=== PATIENT | female | born 1955 | race Caucasian/White ===

== ENCOUNTER → 2017-03-31 | Outpatient (CLI) | payer OTHER | LOC: FIMAGING 09:24 | PROVIDERS: ATTEND Emergency Medicine | DX: Z12.31 Encounter for screening mammogram for malignant neoplasm of breast (principal); Z13.820 Encounter for screening for osteoporosis; M85.80 Other specified disorders of bone density and structure, unspecified site; Z78.0 Asymptomatic menopausal state; Z87.81 Personal history of (healed) traumatic fracture | CPT/HCPCS: G0202 ==

== ENCOUNTER → 2018-09-27 | Outpatient (CLI) | payer OTHER | LOC: FIMAGING 12:34 | PROVIDERS: ATTEND Family Medicine | DX: Z12.31 Encounter for screening mammogram for malignant neoplasm of breast (principal) ==

== ENCOUNTER → 2018-11-27 | Outpatient (CLI) | payer OTHER | LOC: FIMAGING 13:42 | PROVIDERS: ATTEND Family Medicine | DX: R91.1 Solitary pulmonary nodule (principal) ==

== ENCOUNTER → 2019-02-14 | Outpatient (CLI) | payer OTHER | LOC: FIMAGING 16:37 | PROVIDERS: ATTEND Orthopaedic Surgery Hand Surgery | DX: S82.251A Displaced comminuted fracture of shaft of right tibia, initial encounter for closed fracture (principal) ==

== ENCOUNTER → 2019-02-14 | Outpatient (CLI) | payer OTHER | LOC: BMCIMAGING 14:08 | PROVIDERS: ATTEND Nurse Practitioner Family | DX: S82.251A Displaced comminuted fracture of shaft of right tibia, initial encounter for closed fracture (principal) ==

== ENCOUNTER 2019-02-21 12:59 | Observation (INO) | payer OTHER ==
--- NOTE | 2019-02-21 13:23 | PDHPUP ---
History & Physical Update H&P update statement: This history and physical update is based on an assessment of the patient which was completed after admission or registration (within 24 hours), but prior to the surgery/procedure. H&P update: H&P reviewed & patient examined, no change in patient's condition since H&P completed
[2019-02-21] MEDS ORDERED: LR 1,000 ML IV ONE (13:33)
--- NOTE | 2019-02-21 13:37 | PDANEPAE ---
ANE History of Present Illness right tibial plateau fracture, here for ORIF ANE Past Medical History - Cardiovascular History Hx Hypertension: No Hx Arrhythmias: No Hx Chest Pain: No Hx Coronary Artery / Peripheral Vascular Disease: No Hx CHF / Valvular Disease: No Hx Palpitations: No - Pulmonary History Hx COPD: No Hx Asthma/Reactive Airway Disease: No Hx Recent Upper Respiratory Infection: No Hx Oxygen in Use at Home: No Hx Sleep Apnea: No Sleep Apnea Screening Result - Last Documented: Negative Pulmonary History Comment: PULMONARY NODULE - Neurologic History Hx Cerebrovascular Accident: No Hx Seizures: No Hx Dementia: No - Endocrine History Hx Diabetes: No - Renal History Hx Renal Disorders: No - Liver History Hx Hepatic Disorders: No - Neurological & Psychiatric Hx Hx Neurological and Psychiatric Disorders: No - Cancer History Hx Cancer: Yes Cancer History Comment: FACIAL SKIN - Congenital Disorder History Hx Congenital Disorders: No - GI History Hx Gastrointestinal Disorders: Yes Gastrointestinal History Comment: INTERMITTENT WILL USE TUMS - Other Health History Other Health History: INJURED RT KNEE SKING 02/14/19. PSORIASIS ARMS/FEET - Chronic Pain History Chronic Pain: No - Surgical History Prior Surgeries: TONSILLECTOMY. LT BREAST BX. MOH'S FACIAL SURG ANE Review of Systems Review of Systems: - Exercise capacity METS (RN): 6 METS ANE Patient History - Allergies Allergies/Adverse Reactions: Sulfa (Sulfonamide Antibiotics) Allergy (Verified 02/18/19 11:23) Hives - Home Medications Home Medications: NK [No Known Home Meds] 02/18/19 [Last Taken Unknown] - Smoking Hx Smoking Status: Never smoked - Family Anes Hx Family Hx Anesthesia Complications: DTR SLOW TO WAKE UP ANE Labs/Vital Signs - Vital Signs Height: 160.02 cm Weight: 80.739 kg ANE Physical Exam - Airway Neck exam: FROM Mallampati Score: Class 2 Mouth exam: normal dental/mouth exam - Pulmonary Pulmonary: no respiratory distress, no rales or rhonchi - Cardiovascular Cardiovascular: regular rate and rhythym, no murmur, rub, or gallop - ASA Status ASA Status: II ANE Anesthesia Plan Anesthesia Plan: general endotracheal anesthesia, GA w LMA Total IV Anesthesia: No
[2019-02-21] MEDS ORDERED: ceFAZolin 2 GM/DEXTROSE 100 ML IV ONE ×2 (13:49→17:44)
[2019-02-21] MEDS ORDERED: fentaNYL 100 MCG/2 ML INJ ONE ×4 (14:02→17:47)
[2019-02-21] MEDS ORDERED: LIDOCAINE 2% 100 MG/5 ML SYR ONE (14:02)
[2019-02-21] MEDS ORDERED: PROPOFOL 200 MG/20 ML VIAL ONE ×2 (14:02→16:01)
[2019-02-21] MEDS ORDERED: ONDANSETRON 4 MG/2 ML VIAL ONE (14:02)
[2019-02-21] MEDS ORDERED: DEXAMETHASONE 4 MG/ML VIAL ONE (14:02)
[2019-02-21] MEDS ORDERED: BUPIVACAINE/EPI 0.5% 30 ML SDV ONE (14:08)
[2019-02-21] MEDS ORDERED: LABETALOL HCL 5 MG/ML 20 ML MDV IVP PRN (16:23)
[2019-02-21] MEDS ORDERED: ACETAMINOPHEN 500 MG TAB PO PRN (16:23)
[2019-02-21] MEDS ORDERED: ONDANSETRON 4 MG/2 ML VIAL IVP PRN ×2 (16:23→17:44)
[2019-02-21] MEDS ORDERED: PROMETHAZINE HCL 25 MG/ML INJ IVP PRN ×2 (16:23→17:44)
[2019-02-21] MEDS ORDERED: DIAZEPAM 5 MG/ML 1 ML SYR IVP PRN (16:23)
[2019-02-21] MEDS ORDERED: NALOXONE HCL 0.4 MG/ML INJ IVP PRN (16:23)
[2019-02-21] MEDS ORDERED: LR 500 ML IV PRN (16:23)
[2019-02-21] MEDS ORDERED: HYDROmorphONE/DILAUDID 1 MG/ML INJ IVP PRN (16:23)
[2019-02-21] MEDS ORDERED: MEPERIDINE 25 MG/0.5 ML AMP IVP PRN (16:23)
--- NOTE | 2019-02-21 17:40 | POSTANESTH ---
Post Anesthetic Evaluation Cardiovascular Status: Normal, Stable Respiratory Status: Normal, Stable Level of Consciousness/Mental Status: Can Participate in Eval Pain Control: Adequate, Prn Tx Ordered Nausea/Vomiting Control: Adequate, Prn Tx Ordered Complications Possibly Related to Anesthesia: None Noted
[2019-02-21] MEDS ORDERED: PROMETHAZINE HCL 25 MG SUPPR PR PRN (17:44)
[2019-02-21] MEDS ORDERED: KETOROLAC 15 MG/1 ML SDV IVP ONE (17:44)
[2019-02-21] MEDS ORDERED: DIPHENOXYLATE/ATROPINE LOMOTIL 1 TAB PO PRN (17:44)
[2019-02-21] MEDS ORDERED: diphenhydrAMINE 25 MG CAP PO PRN (17:44)
[2019-02-21] MEDS ORDERED: ONDANSETRON DISINTEGRATING 4 MG TAB PO PRN (17:44)
[2019-02-21] MEDS ORDERED: METOCLOPRAMIDE 10 MG/2 ML VIAL IVP PRN (17:44)
[2019-02-21] MEDS: fentaNYL 100 MCG/2 ML INJ IVP PRN ×2 (17:51→17:57)
[2019-02-21] MEDS ORDERED: LR 1,000 ML IV SCH (18:00)
[2019-02-21] MEDS ORDERED: KETOROLAC 15 MG/1 ML SDV ONE (18:53)
[2019-02-21] MEDS ORDERED: ACETAMINOPHEN 325 MG TAB ONE (19:04)
[2019-02-21] MEDS: ACETAMINOPHEN 325 MG TAB PO SCH ×2 (19:09→23:06)
[2019-02-21] MEDS ORDERED: oxyCODONE IR 5 MG TAB ONE ×2 (19:12→19:40)
[2019-02-21] MEDS: oxyCODONE IR 5 MG TAB PO PRN ×3 (19:14→21:03)
[2019-02-21] MEDS: FAMOTIDINE 20 MG TAB PO SCH (22:37)
[2019-02-21] MEDS: ceFAZolin 2 GM/DEXTROSE 100 ML IV SCH (22:38)
[2019-02-21] MEDS: KETOROLAC 15 MG/1 ML SDV IVP SCH (23:06)
[2019-02-22] MEDS: oxyCODONE IR 5 MG TAB PO PRN ×2 (00:14→08:46)
--- NOTE | 2019-02-22 03:27 | GOP ---
[f rep st] OPERATIVE REPORT DATE OF OPERATION: 02/21/2019 SURGEON: Aneesh Kelley MD ANESTHESIA: General. PREOPERATIVE DIAGNOSIS: Right lateral split and depressed tibial plateau fracture, Schatzker II. POSTOPERATIVE DIAGNOSIS: Right lateral split and depressed tibial plateau fracture, Schatzker II. PROCEDURE PERFORMED: Open reduction, internal fixation of right tibial plateau fracture. FINDINGS: ESTIMATED BLOOD LOSS: 20 cc. INDICATIONS: The patient is a 63-year-old female who sustained this injury 1 week ago while skiing a [employer]. She had immediate pain and right after her fall skiing, she was seen in Urgent Care. X-ra ys were taken, which showed a lateral plateau fracture, with articular depression. I saw the patient that day, while she was in Urgent Care. I ordered a CT scan and then the patient saw me in clinic a fter this CT scan, where we reviewed it. She had fairly significant articular depression with a spli t of the articular subchondral bone. ORIF was indicated for this fracture pattern. We discussed ris ks and benefits. Risks include pain, bleeding, infection, damage the to surrounding structures, post traumatic arthritis, loss of reduction, surgical site or hardware infection, stiffness, weakness, nee d for further surgery. She understood these risks and wished to proceed. DESCRIPTION OF PROCEDURE: The patient was seen in the preoperative holding area. She was given the opportunity to ask more questions. All her questions were answered, and consent was signed. Surgica l site was marked. She was transferred to the operative suite. Care was taken to pad all bony promi nences on the [facility]. Time-out was called, including the surgical and anesthesia teams, confirming t he surgical site and the procedure to be performed. 2 g of Ancef were given prior to the incision. She was very carefully moved from the [place] to the operating room table. Great care was taken to pa d all bony prominences on the operating room table, with a small bump in her hip. Her right lower ex tremity was prepped and draped in the usual sterile fashion. Esmarch was used to exsanguinate the [facility] lower extremity. Tourniquet was inflated to 250 mmHg. I placed her knee under a blanket roll. Then I made an S-shaped incision over the joint line, Gerdy's tubercle, just lateral to the tibial cr est. Carefully dissected down through the skin and left large thick skin flaps. I then visualized t he IT band and anterior compartment fascia. Retractors were placed. I then made a split in the IT b and, about 1/3 to 2/3, and also elevated off the anterior compartment fascia from the tibial crest. Then I connected these 2 fascial incisions. Then I elevated the IT band off Gerdy's tubercle to visu garrett the fracture site. Peeled away the anterior compartment muscle from the bone. I visualized th e fracture site. I cleaned out the fracture site. I made a submeniscal arthrotomy with a 15 blade, and then I placed Ethibond sutures tacked retract it, and to visualize the joint, then opened up the fracture site with the lamina gas appliance repairer, visualized the articular depression. Then, I elevated off th e articular depressed fragments, then placed some cancellous bone graft into the void. I then closed the split. I chose a plate, placed the plate over the lateral plateau, then I used a large periarti cular clamp over the plate, and made a small incision in the medial plateau to place the periarticula r clamp, and I clamped it down. This reduced the fragment and held the plate against the bone. I ch ecked the reduction. I was very happy with the articular reduction, in both AP and lateral views. I was also happy with the plate position. Then I placed several K-wires to hold the reduction and the plate position. I then began placing the rafting screws. I placed 3 proximal rafting screws under x-ray visualization, to be sure they were just subchondral. Then I placed 2 nonlocking screws in the shaft to suck the plate down to the bone. Then I placed a kickstand locking screw and another locki ng screw into the shaft with 3 screws in the distal fragment. I placed 1 more locking screw and the rafting screw. I was very happy with that position as well. I then took final x-rays, had anatomic reduction of the joint on AP and lateral views. I then irrigated copiously with sterile saline. I c losed the submeniscal arthrotomy with #2 Ethibond sutures. Two of these were placed through the supe rior K-wire holes in the plate. Then I repaired the IT band at its insertion over Gerdy's tubercle w ith several interrupted #2 Ethibond, then the remainder of the IT band tube and the anterior compartm ent fascia split were closed with a running #1 Vicryl. After this was done, I sightly pie-crusted th e anterior compartment fascia to relieve some swelling. Then I closed the wound in layers using 2-0 Monocryl and then a running 3-0 nylon. Sterile dressing was applied. Bartolo bandage was applied. She was placed in a hinged knee brace. She was awakened from general anesthesia in stable condition and taken to the PACU in stable condition. IMPLANTS USED: Synthes Variable Angle periarticular lateral plateau plating system. POSTOPERATIVE CONDITION: Stable. POSTOPERATIVE PLAN: The patient will be admitted as an observation. She will follow up with me in 1 0 to 14 days. We will acquire x-ray in the PACU. She will be discharged with DVT prophylaxis. /[id number]/MODL
[2019-02-22] MEDS: ceFAZolin 2 GM/DEXTROSE 100 ML IV SCH (05:45)
[2019-02-22] MEDS: KETOROLAC 15 MG/1 ML SDV IVP SCH ×2 (05:45→11:23)
[2019-02-22] MEDS: ACETAMINOPHEN 325 MG TAB PO SCH ×2 (05:45→11:23)
[2019-02-22] MEDS: FAMOTIDINE 20 MG TAB PO SCH (08:47)
[2019-02-22] MEDS ORDERED: ENOXAPARIN 40 MG/0.4 ML SYR SC SCH (09:00)
[2019-02-22 12:16] VITALS: BP 139/71
--- NOTE | 2019-02-22 13:16 | PDIAF ---
- Diagnosis Code Status: Full Code - Medication Management Discharge Medications: electronically signed and located in the Home Medication List. - Orders Diet Texture: Regular Texture Diet Additional Instructions: Elevate RLE when resting ROM of knee, ankle ok Brace unlocked. Brace on all times except hygiene and sleep (if she is able to stabilize on pillows may have off in bed) NWB RLE May remove dressing in 3d, then may shower. Do not soak. Cover with clean RAGHU bandage F/u with Dr. Kelley or Ester Reese in clinic in 2 wks Call office or go to ED if sustained fever >101, redness, drainage. Lovenox x3 wks - Follow Up Care Current Providers and Referrals: Ashley Barth MD [Primary Care Provider] - Aneesh Kelley MD [Medical Doctor] - follow up in 2 weeks Ester Reese PA [Physician Operations Support Coordinator] - follow up in 2 weeks
--- NOTE | 2019-02-22 13:18 | SOAPPROG ---
SOAP Progress Note Assessment/Plan: Assessment: pod1 s/p ORIF R tib plateau -doing well -ankle xray neg -dvt U/S neg Plan: -PT/OT -Tamia -pain ctrl -d/c home today 02/22/19 13:16 Subjective: Pain in ankle less this am. Tingling dissipating Objective: Vital Signs Temp Pulse Resp BP Pulse Ox 36.6 C 90 14 139/71 H 94 02/22/19 12:00 02/22/19 12:00 02/22/19 12:00 02/22/19 12:00 02/22/19 12:00 Laboratory Results 02/22/19 04:00 02/21/19 02/22/19 02/23/19 05:59 05:59 05:59 Intake Total 2745 Output Total 0 Balance 2745 RLE -dressing c/d/i -NV intact (5/5 ankle DF/PF, great toe DF/PF), SILT all dermatomes -compartments soft ICD10 Worksheet Patient Problems: Problems Problem Status Onset Tibial plateau fracture, right Acute - ICD10 Problem Qualifiers (1) Tibial plateau fracture, right Qualifiers: Encounter type: initial encounter Fracture type: closed Qualified Code(s) : S82.141A - Displaced bicondylar fracture of right tibia, initial encounter for closed fracture
--- NOTE | 2019-02-22 14:00 | ASMTLACE ---
MAXINE Length of stay for Answers: 2 days current admission Acuity / Level of Answers: Yes Care: Did the patient have an inpatient admission? # of Emergency department Answers: 0 visits in the last 6 months Score: 5 Date Signed: 02/22/2019 01:58 PM Electronically Signed By:MALCOLM Salinas
--- NOTE | 2019-02-22 14:02 | ASMTCMCOM ---
CM Note CM Note Notes: Pt had tibial plateau fx surgery, she had a ski accident a week ago. PT rec home. Pt resides with spouse. No CM d/c needs identified. Date Signed: 02/22/2019 01:59 PM Electronically Signed By:MALCOLM Salinas
== END 2019-02-22 14:09 | disposition home or self-care (01) ==
LOC: FSGY 12:59 → INTOOBSV 20:31 → F3N 20:31
PROVIDERS: ADMIT Orthopaedic Surgery Hand Surgery; ATTEND Orthopaedic Surgery Hand Surgery
PROC: 0QSG04Z Reposition Right Tibia with Internal Fixation Device, Open Approach (ICD-10-PCS; principal; 2019-02-21 14:07)
PROC: BQ171ZZ Fluoroscopy of Right Knee using Low Osmolar Contrast (ICD-10-PCS; principal; 2019-02-21 14:07)
DX: S82.121A Displaced fracture of lateral condyle of right tibia, initial encounter for closed fracture (principal); R22.41 Localized swelling, mass and lump, right lower limb; V00.321A Fall from snow-skis, initial encounter; Y93.23 Activity, snow (alpine) (downhill) skiing, snowboarding, sledding, tobogganing and snow tubing; Y92.838 Other recreation area as the place of occurrence of the external cause; J45.909 Unspecified asthma, uncomplicated; Z88.0 Allergy status to penicillin
CPT/HCPCS: 27535; 73560; 73600; 76000; 93971; 97116; 97161; 97165; 97535; G0378; C1713; C1762; J0690; J1100; J1650; J1885; J2001; J2405; J2704; J3010; L1832

== ENCOUNTER → 2019-02-25 | Outpatient (CLI) | payer OTHER | LOC: FIMAGING 16:16 | PROVIDERS: ATTEND Orthopaedic Surgery Hand Surgery | DX: M79.89 Other specified soft tissue disorders (principal) ==

== ENCOUNTER → 2019-03-08 | Outpatient (CLI) | payer OTHER | LOC: BMCIMAGING 15:28 | PROVIDERS: ATTEND Orthopaedic Surgery Hand Surgery | DX: S82.141D Displaced bicondylar fracture of right tibia, subsequent encounter for closed fracture with routine healing (principal) ==

== ENCOUNTER → 2019-04-11 | Outpatient (CLI) | payer OTHER | LOC: BMCIMAGING 13:22 | PROVIDERS: ATTEND Orthopaedic Surgery Hand Surgery | DX: S82.141D Displaced bicondylar fracture of right tibia, subsequent encounter for closed fracture with routine healing (principal) ==

== ENCOUNTER 2019-04-22 03:11 | Emergency (ER) | payer OTHER | END 2019-04-22 06:31 | disposition home or self-care (01) ==

== ENCOUNTER → 2019-05-16 | Outpatient (CLI) | payer OTHER | LOC: BMCIMAGING 09:25 ==